=== PATIENT | female | born 1980 | race Caucasian/White ===

== ENCOUNTER 2016-07-23 20:28 | Emergency (ER) | payer OTHER ==
--- NOTE | 2016-07-23 22:53 | ED ORDER SUMMARY ---
..... Patient: JAS BARKER OrderSheet [facility] VisitID: [id number] [address] [place] [address] 35y, F Registration Date/Time: 07/23/2016 ORDER SHEET Weight: 95.2 kg (stated) Allergies: No Known Drug Allergy GENERAL ORDERS: Chest 2V Urgent (21:55 07/23/2016 [facility]) (Ack 21:58 LMuller) (22:34 LMuller) EKG - ER Stat (22:14 07/23/2016 [facility]) (Ack 22:15 LTapper) (22:25 Fausto R.NSadaf) MEDICATION ORDERS: DuoNeb Neb Tx 1 unit dose (NOW) (21:55 07/23/2016 [facility]) (22:03 Radha) IV FLUIDS: ORDER SHEET NOTES: [Electronically signed by Ramya Atwood R.N. (23:07/23/2016)] [Electronically signed by Preston Parmar DO (03:13 07/24/2016)] [Electronically locked/signed by Ramya Atwood R.N. (23:07/23/2016)]
--- NOTE | 2016-07-23 22:53 | ED CLINICAL REPORT ---
Clinical Report - Physicians/Mid Levels [facility] [address] [place] [address] 07/23/2016 20:28 Patient: JAS BARKER Time Seen: 21:52. Arrived- By private vehicle. Historian- patient. HISTORY OF PRESENT ILLNESS Chief Complaint: DYSPNEA. This started about 1 1/2 week ago and is still present. It was gradual in onset and has been waxing/waning. The dyspnea is described as moderate and is worsened by exertion and is improved by rest. The patient has had a cough, dyspnea on exertion and anxiety. No fever, calf pain or foot swelling. Similar symptoms previously: Recent medical care: The patient was seen recently at this facility in the emergency department. Evaluation/treatment: antibiotic prescribed. Diagnosis: bronchitis. REVIEW OF SYSTEMS The patient has had moderate muscle aches involving the back. No eye irritation, sore throat, nausea, vomiting or abdominal pain. No diarrhea, black stools, bloody stools, headache or fainting episodes. No difficulty with urination, excessive urination, skin rash, enlarged lymph nodes or joint pain. The patient has had a nasal discharge and sinus drainage. All systems otherwise negative, except as recorded above. PAST HISTORY PCP: [place] Stuart ROBLEMS: Bronchitis. Anxiety. Dysfunctional Uterine Bleeding. Vaginitis. Vaginal Discharge. Skin Rash. SURGERIES: Adenoidectomy. Tonsillectomy. Tubal Ligation. Medications: None. Allergies: No Known Drug Allergy. SOCIAL HISTORY Smoker- current status unknown. Occasional alcohol use. No drug use. Is a local resident. ADDITIONAL NOTES The nursing notes have been reviewed. PHYSICAL EXAM Vital Signs: 07/23/2016 21:30 BP: 137/93. HR: 65. RR: 20. O2 saturation: 97%. Temp: 97.8 F. Appearance: Alert. No acute distress. Eyes: Eyes normal inspection. No pale conjunctivae or scleral icterus. ENT: Pharynx normal. Uvula midline. No pharyngeal erythema. The mucous membranes are not dry. Neck: Normal inspection. No jugular venous distention. Neck supple. No meningeal signs or JVD. CVS: Normal heart rate and rhythm. Heart sounds normal. Pulses normal. Respiratory: No respiratory distress. Breath sounds normal. No retractions, decreased air movement, prolonged expiration, splinting or wheezes. No stridor, rales or rhonchi. Abdomen: Soft and nontender. Back: Normal inspection. Skin: Skin warm and dry. Normal skin color. Normal skin turgor. Extremities: Extremities exhibit normal ROM. No lower extremity edema. Neuro: Oriented X 3. No motor deficit. LABS, X-RAYS, AND EKG EKG: EKG time: (22:49). Normal sinus rhythm. Rate: 70. Normal P waves. Normal DMITRI. Normal QRS complex. Normal axis. Normal ST and T waves. The study has been interpreted contemporaneously by me. The EKG appears to be a good tracing. Chest X-ray: No acute disease. Normal lung markings present. Normal heart size. Mediastinum normal. Great vessels normal. No infiltrate. Views: PA and lateral. Technique: good. The X-rays were interpreted contemporaneously by me. Pulse Oximetry: 07/23/2016 21:30 O2 saturation: 97%. (FIO2 - room air). Interpretation: normal. PROGRESS AND PROCEDURES Course of Care: DuoNeb nebulizer treatment (1 unit dose) given. 03:12 07/24/16. Patient is stable. Physical exam findings are improved. Symptoms much better. Most c/w viral URI / bronchitis - could be influenza - Tamiflu not indicated (and testing will not loom changeover operator in this flu epidemic). Patient/family counseled. Old ED records reviewed. Disposition: Discharged. Condition: stable and improved. CLINICAL IMPRESSION Acute viral bronchitis. Possible influenza with upper respiratory infection and bronchitis. INSTRUCTIONS Do not work for two days. Drink plenty of fluids. Do not smoke. Seek medical help to quit smoking. Warnings: Further evaluation is necessary in order to obtain test results and conduct further tests. It is very important to follow up with a physician. GENERAL WARNINGS: Return or contact your physician immediately if your condition worsens or changes unexpectedly, if not improving as expected, or if other problems arise. Prescription Medications: Albuterol HFA oral inhaler: inhale 1 to 2 puffs every four to six hours as needed for difficulty breathing. Dispense one (1) unit. No refills. (with spacer) OTC Medications: Acetaminophen (available over the counter): take according to label instructions. Motrin (available over the counter): take according to label instructions. Follow-up: Follow up with your doctor [facility] in two days. (Electronically signed by Preston Parmar DO 07/24/2016 3:13)
--- NOTE | 2016-07-23 22:53 | ED ORDER SUMMARY ---
..... Patient: JAS BARKER OrderSheet [facility] VisitID: [id number] [address] [place] [address] 35y, F Registration Date/Time: 07/23/2016 ORDER SHEET Weight: 95.2 kg (stated) Allergies: No Known Drug Allergy GENERAL ORDERS: Chest 2V Urgent (21:55 07/23/2016 [facility]) (Ack 21:58 LMuller) (22:34 LMuller) EKG - ER Stat (22:14 07/23/2016 [facility]) (Ack 22:15 LTapper) (22:25 Fausto R.NSadaf) MEDICATION ORDERS: DuoNeb Neb Tx 1 unit dose (NOW) (21:55 07/23/2016 [facility]) (22:03 Radha) IV FLUIDS: ORDER SHEET NOTES: [Electronically signed by Ramya Atwood R.N. (23:07/23/2016)] [Electronically signed by Preston Parmar DO (03:13 07/24/2016)] [Electronically locked/signed by Ramya Atwood R.N. (23:07/23/2016)]
--- NOTE | 2016-07-23 22:53 | ED CLINICAL REPORT ---
Clinical Report - Physicians/Mid Levels [facility] [address] [place] [address] 07/23/2016 20:28 Patient: JAS BARKER Time Seen: 21:52. Arrived- By private vehicle. Historian- patient. HISTORY OF PRESENT ILLNESS Chief Complaint: DYSPNEA. This started about 1 1/2 week ago and is still present. It was gradual in onset and has been waxing/waning. The dyspnea is described as moderate and is worsened by exertion and is improved by rest. The patient has had a cough, dyspnea on exertion and anxiety. No fever, calf pain or foot swelling. Similar symptoms previously: Recent medical care: The patient was seen recently at this facility in the emergency department. Evaluation/treatment: antibiotic prescribed. Diagnosis: bronchitis. REVIEW OF SYSTEMS The patient has had moderate muscle aches involving the back. No eye irritation, sore throat, nausea, vomiting or abdominal pain. No diarrhea, black stools, bloody stools, headache or fainting episodes. No difficulty with urination, excessive urination, skin rash, enlarged lymph nodes or joint pain. The patient has had a nasal discharge and sinus drainage. All systems otherwise negative, except as recorded above. PAST HISTORY PCP: Montana Stuart ROBLEMS: Bronchitis. Anxiety. Dysfunctional Uterine Bleeding. Vaginitis. Vaginal Discharge. Skin Rash. SURGERIES: Adenoidectomy. Tonsillectomy. Tubal Ligation. Medications: None. Allergies: No Known Drug Allergy. SOCIAL HISTORY Smoker- current status unknown. Occasional alcohol use. No drug use. Is a local resident. ADDITIONAL NOTES The nursing notes have been reviewed. PHYSICAL EXAM Vital Signs: 07/23/2016 21:30 BP: 137/93. HR: 65. RR: 20. O2 saturation: 97%. Temp: 97.8 F. Appearance: Alert. No acute distress. Eyes: Eyes normal inspection. No pale conjunctivae or scleral icterus. ENT: Pharynx normal. Uvula midline. No pharyngeal erythema. The mucous membranes are not dry. Neck: Normal inspection. No jugular venous distention. Neck supple. No meningeal signs or JVD. CVS: Normal heart rate and rhythm. Heart sounds normal. Pulses normal. Respiratory: No respiratory distress. Breath sounds normal. No retractions, decreased air movement, prolonged expiration, splinting or wheezes. No stridor, rales or rhonchi. Abdomen: Soft and nontender. Back: Normal inspection. Skin: Skin warm and dry. Normal skin color. Normal skin turgor. Extremities: Extremities exhibit normal ROM. No lower extremity edema. Neuro: Oriented X 3. No motor deficit. LABS, X-RAYS, AND EKG EKG: EKG time: (22:49). Normal sinus rhythm. Rate: 70. Normal P waves. Normal DMITRI. Normal QRS complex. Normal axis. Normal ST and T waves. The study has been interpreted contemporaneously by me. The EKG appears to be a good tracing. Chest X-ray: No acute disease. Normal lung markings present. Normal heart size. Mediastinum normal. Great vessels normal. No infiltrate. Views: PA and lateral. Technique: good. The X-rays were interpreted contemporaneously by me. Pulse Oximetry: 07/23/2016 21:30 O2 saturation: 97%. (FIO2 - room air). Interpretation: normal. PROGRESS AND PROCEDURES Course of Care: DuoNeb nebulizer treatment (1 unit dose) given. 03:12 07/24/16. Patient is stable. Physical exam findings are improved. Symptoms much better. Most c/w viral URI / bronchitis - could be influenza - Tamiflu not indicated (and testing will not change manager in this flu epidemic). Patient/family counseled. Old ED records reviewed. Disposition: Discharged. Condition: stable and improved. CLINICAL IMPRESSION Acute viral bronchitis. Possible influenza with upper respiratory infection and bronchitis. INSTRUCTIONS Do not work for two days. Drink plenty of fluids. Do not smoke. Seek medical help to quit smoking. Warnings: Further evaluation is necessary in order to obtain test results and conduct further tests. It is very important to follow up with a physician. GENERAL WARNINGS: Return or contact your physician immediately if your condition worsens or changes unexpectedly, if not improving as expected, or if other problems arise. Prescription Medications: Albuterol HFA oral inhaler: inhale 1 to 2 puffs every four to six hours as needed for difficulty breathing. Dispense one (1) unit. No refills. (with spacer) OTC Medications: Acetaminophen (available over the counter): take according to label instructions. Motrin (available over the counter): take according to label instructions. Follow-up: Follow up with your doctor [facility] in two days. (Electronically signed by Preston Parmar DO 07/24/2016 3:13)
--- NOTE | 2016-07-23 22:53 | ED NURSING NOTES ---
Clinical Report - Nurses [facility] [address] [place] [address] 07/23/2016 20:28 Patient: JAS BARKER TRIAGE Triage time 21:30 Jul 23 2016. Acuity: LEVEL 4. Chief Complaint: RECHECK OF ILLNESS STATUS. Alert. No acute distress. ROHAN COMA SCORE: Guffey Coma Scale: 15- eyes open spontaneously (4); best verbal response- oriented x 4 (5); best motor response- obeys commands (6). --21:33 Yudi Akhtar R.N. 21:30 07/23/16. BP: 137/93. HR: 65. RR: 20. O2 saturation: 97%. Temp: 97.8 F. Pain level now 6/10. --21:33 Yudi Akhtar R.N. Weight: 95.2 kg stated. Height/Length: 66 inches Per Patient. BMI: 33.9. --21:29 Yudi Akhtar R.N. Medications None. --21:32 Yudi Akhtar R.N. Medication/allergy information source: the patient. --21:33 Yudi Akhtar R.N. Allergies No Known Drug Allergy. --21:32 Yudi Akhtar R.N. History Arrived by private vehicle. Historian: patient. Primary physician ([facility]). ( Dx with Bronchitis here at [facility]. Finished the ABX. States no better. States increased upper neck tenderness. Cheat pains, tightness.). Previous treatment: Previously seen in this ED. PO antibiotic given in ED. Prescription given. SOCIAL HX: Smoker- current status unknown (cigarette). Occasional alcohol use. No drug use. NUTRITIONAL RISK ASSESSMENT: The nutritional risk assessment revealed no deficiencies. FUNCTIONAL ASSESSMENT: Functional assessment: no impairments noted. LEARNING NEEDS ASSESSMENT: The learning needs assessment revealed no barriers. SKIN INTEGRITY ASSESSMENT: Skin integrity risk assessment completed. No skin integrity risk identified. --21:33 Yudi Akhtar R.N. PROBLEMS: Bronchitis. Anxiety. Dysfunctional Uterine Bleeding. Vaginitis. Vaginal Discharge. Skin Rash. LNMP - Last Normal Menstrual Period. --21:32 Yudi Akhtar R.N. ADDITIONAL SURGERIES: Adenoidectomy. Tonsillectomy. Tubal Ligation. --:32 Yudi Akhtar R.N. Interventions ID band on patient. To room. --21:33 Yudi Akhtar R.N. NURSING PROGRESS NOTES 22:03 07/23/2016 Duoneb (Ipratropium-Albuterol) Neb TX Nebulizer 1 unit dose given. Given by the respiratory therapist. Allergies verified and confirmed 5 rights. --22:03 Elsa Coker transferred and report received. --22:25 Ramya Atwood R.N. Two patient identifiers checked. Call light placed in reach. Side rails up x 1. Bed placed in lowest position. Brakes of bed on. --22:25 Ramya Atwood R.N. Patient transported to radiology by stretcher with tech. --22:32 Ramya Atwood R.N. EKG time: (2248). EKG was performed by a tech and shown to the ED physician. --22:49 Ivonne Choi. DISPOSITION / DISCHARGE Condition at departure: stable. No learning barriers present. Discharge instructions provided and reviewed with the patient. Reviewed medication(s) side effects, precautions, dosing and course information. Prescription(s) given to the patient. Patient verbalized understanding. Written instructions provided in Moz[place]ican. The patient was discharged home. She left the Emergency Department ambulatory and via private vehicle. --23:01 Ramya Atwood R.N. 23:00 07/23/16. BP: 120/78. HR: 63. RR: 16. O2 saturation: 96% on room air. Temp: deferred. Kennedy-Kc pain scale: 410. --23:01 Ramya Atwood R.N. Locked/Released at 07/23/2016 23:01 by Ramya Atwood R.N.
--- NOTE | 2016-07-23 22:53 | ED NURSING NOTES ---
Clinical Report - Nurses [facility] [address] [place] [address] 07/23/2016 20:28 Patient: JAS BARKER TRIAGE Triage time 21:30 Jul 23 2016. Acuity: LEVEL 4. Chief Complaint: RECHECK OF ILLNESS STATUS. Alert. No acute distress. ROHAN COMA SCORE: Harvey Coma Scale: 15- eyes open spontaneously (4); best verbal response- oriented x 4 (5); best motor response- obeys commands (6). --21:33 Yudi Akhtar R.N. 21:30 07/23/16. BP: 137/93. HR: 65. RR: 20. O2 saturation: 97%. Temp: 97.8 F. Pain level now 6/10. --21:33 Yudi Akhtar R.N. Weight: 95.2 kg stated. Height/Length: 66 inches Per Patient. BMI: 33.9. --21:29 Yudi Akhtar R.N. Medications None. --21:32 Yudi Akhtar R.N. Medication/allergy information source: the patient. --21:33 Yudi Akhtar R.N. Allergies No Known Drug Allergy. --21:32 Yudi Akhtar R.N. History Arrived by private vehicle. Historian: patient. Primary physician ([facility]). ( Dx with Bronchitis here at [facility]. Finished the ABX. States no better. States increased upper neck tenderness. Cheat pains, tightness.). Previous treatment: Previously seen in this ED. PO antibiotic given in ED. Prescription given. SOCIAL HX: Smoker- current status unknown (cigarette). Occasional alcohol use. No drug use. NUTRITIONAL RISK ASSESSMENT: The nutritional risk assessment revealed no deficiencies. FUNCTIONAL ASSESSMENT: Functional assessment: no impairments noted. LEARNING NEEDS ASSESSMENT: The learning needs assessment revealed no barriers. SKIN INTEGRITY ASSESSMENT: Skin integrity risk assessment completed. No skin integrity risk identified. --21:33 Yudi Akhtar R.N. PROBLEMS: Bronchitis. Anxiety. Dysfunctional Uterine Bleeding. Vaginitis. Vaginal Discharge. Skin Rash. LNMP - Last Normal Menstrual Period. --21:32 Yudi Akhtar R.N. ADDITIONAL SURGERIES: Adenoidectomy. Tonsillectomy. Tubal Ligation. --:32 Yudi Akhtar R.N. Interventions ID band on patient. To room. --21:33 Yudi Akhtar R.N. NURSING PROGRESS NOTES 22:03 07/23/2016 Duoneb (Ipratropium-Albuterol) Neb TX Nebulizer 1 unit dose given. Given by the respiratory therapist. Allergies verified and confirmed 5 rights. --22:03 Elsa Coker transferred and report received. --22:25 Ramya Atwood R.N. Two patient identifiers checked. Call light placed in reach. Side rails up x 1. Bed placed in lowest position. Brakes of bed on. --22:25 Ramya Atwood R.N. Patient transported to radiology by stretcher with tech. --22:32 Ramya Atwood R.N. EKG time: (2248). EKG was performed by a tech and shown to the ED physician. --22:49 Ivonne Choi. DISPOSITION / DISCHARGE Condition at departure: stable. No learning barriers present. Discharge instructions provided and reviewed with the patient. Reviewed medication(s) side effects, precautions, dosing and course information. Prescription(s) given to the patient. Patient verbalized understanding. Written instructions provided in Bruneian. The patient was discharged home. She left the Emergency Department ambulatory and via private vehicle. --23:01 Ramya Atwood R.N. 23:00 07/23/16. BP: 120/78. HR: 63. RR: 16. O2 saturation: 96% on room air. Temp: deferred. Kennedy-Kc pain scale: 410. --23:01 Ramya Atwood R.N. Locked/Released at 07/23/2016 23:01 by Ramya Atwood R.N.
--- NOTE | 2016-07-24 01:00 | DIAGNOSTIC IMAGING REPORT ---
PROCEDURE: XR CHEST 2 VIEW INDICATION: COUGH TECHNIQUE: PA and lateral views. COMPARISON: None. FINDINGS: Lungs are clear. Heart and mediastinum are normal. There is mild with prominent fat pad at the right cardiophrenic angle. Thorax is normal. IMPRESSION: 1. Negative chest.
--- NOTE | 2016-07-24 03:13 | ED DISCHARGE INSTRUCTIONS ---
Patient: JAS BARKER General Instructions [facility] VisitID: [id number] [place] [address] 35y, F Registration Date/Time: 07/23/2016 Acute viral bronchitis. INSTRUCTIONS Do not work for two days. Drink plenty of fluids. Do not smoke. Seek medical help to quit smoking. Warnings: Further evaluation is necessary in order to obtain test results and conduct further tests. It is very important to follow up with a physician. GENERAL WARNINGS: Return or contact your physician immediately if your condition worsens or changes unexpectedly, if not improving as expected, or if other problems arise. Prescription Medications: Albuterol HFA oral inhaler: inhale 1 to 2 puffs every four to six hours as needed for difficulty breathing. Dispense one (1) unit. No refills. (with spacer) OTC Medications: Acetaminophen (available over the counter): take according to label instructions. Motrin (available over the counter): take according to label instructions. Follow-up: Follow up with your doctor [facility] in two days. ADDITIONAL INFORMATION Bronchitis (Adult: Abx Tx) BRONCHITIS is an infection of the air passages (bronchial tubes). It often occurs during the common cold. Symptoms include cough with mucus (phlegm) and low-grade fever. Bronchitis usually lasts 7-14 days. Mild cases can be treated with simple home remedies. More severe infection is treated with an antibiotic. Home Care: If symptoms are severe, rest at home for the first 2-3 days. When you resume activity, don't let yourself get too tired. Do not smoke. Avoid being exposed to the smoke of others. You may use acetaminophen (Tylenol) or ibuprofen (Motrin, Advil) to control fever or pain, unless another medicine was prescribed for this. [NOTE: If you have chronic liver or kidney disease or ever had a stomach ulcer or GI bleeding, talk with your doctor before using these medicines.] Your appetite may be poor, so a light diet is fine. Avoid dehydration by drinking 6-8 glasses of fluids per day (water, soft, drinks, juices, tea, soup, etc.). Extra fluids will help loosen secretions in the lungs. Duxf-jhb-unysrjr cough medicines that containdextromethorphan(such as Robitussin DM) and decongestants (Actifed or Sudafed) may help relieve cough and congestion. [NOTE: Do not use decongestants if you have high blood pressure.] Finish all antibiotic medicine, even if you are feeling better after only a few days. Follow Up with your doctor or as directed if you dont start to feel better after three days. [NOTE: If you are age 65 or older, or if you have chronic asthma or COPD, we recommend a PNEUMOCOCCAL VACCINATION every five years and a yearly INFLUENZAVACCINATION (FLU-SHOT) every . Ask your doctor about this. If you had an X-ray, a radiologist will review it. You will be notified of any new findings that may affect your care.] Get Prompt Medical Attention if any of the following occur: Fever over 100.4F (38.0C) for more than three days Trouble breathing, wheezing or pain with breathing Coughing up blood or increased amounts of colored sputum Weakness, drowsiness, headache, facial pain, ear pain or a stiff neck Influenza (Adult) Influenza, also called the flu, is a viral illness that affects the air passages of the lungs. It differs from the common cold. It is highly contagious. It may be spread through the air by coughing and sneezing or by direct contact (touching the sick person and then touching your own eyes, nose or mouth). Illness starts 1-3 days after exposure and lasts for 1-2 weeks. Antibiotics are usually not needed unless a complication appears (ear or sinus infection or pneumonia). Symptoms may be mild or severe and can include extreme tiredness (wanting to stay in bed all day), chills, fevers, muscle aching, soreness with eye movement, headache, and a dry, hacking cough. Home Care: Avoid exposure to cigarette smoke (yours or others). Tylenol or ibuprofen (Advil) will help fever, muscle aching, and headache. To avoid risk of liver injury, aspirin should not be used in children and teenagers under 18 with this illness. Nausea and loss of appetite are common. A light diet is recommended. Avoid dehydration by drinking 6-8 glasses of fluids per day (water, sport drinks like Gatorade, soft drinks without caffeine, juices, tea, soup, etc.). Extra fluids will also help loosen secretions in the nose and lungs. Pxpf-jrp-rbzffpm cold medicines will not shorten the duration of the illness but may be helpful for the following symptoms: cough (Robitussin DM); sore throat (Chloraseptic lozenges or spray); nasal and sinus congestion (Actifed or Sudafed). [NOTE: Do not use decongestants if you have high blood pressure.] Stay home until your fever has been gone for at least 24 hours (without the use of fever-reducing medications such as ibuprofen). Follow Up with your doctor or as directed by our staff if you are not improving over the next week. Note: If you are age 65 or older, or if you have chronic asthma or COPD, we recommend a pneumococcal vaccinationevery five years. All adults shouldreceive a yearly influenza vaccination every . Ask your doctor about this. Get Prompt Medical Attention if any of the following occur: Cough with lots of colored sputum (mucus) or blood in your sputum Chest pain, shortness of breath, wheezing, or difficulty breathing Severe headache, face, neck or ear pain New rash Fever of 100.4F (38C) oral or higher, not better with fever medication Confusion, behavior change or seizure Severe weakness or dizziness How To Quit Smoking Smoking is one of the hardest habits to break. About half of all those who have ever smoked have been able to quit, and most of those (about 70%) who still smoke want to quit. Here are some of the best ways to stop smoking. Keep Trying: It takes most smokers about 8 tries before they are finally able to fully quit. So, the more often you try and fail, the better your chance of quitting the next time! So, don't give up! Go Cold [place]: Most ex-smokers quit cold turkey. Trying to cut back gradually doesn't seem to work as well, perhaps because it continues the smoking habit. Also, it is possible to fool yourself by inhaling more while smoking fewer cigarettes. This results in the same amount of nicotine in your body! Get Support: Support programs can make an important difference, especially for the heavy smoker. These groups offer lectures, methods to change your behavior and peer support. Call the free national Quitline for more information. 448-TEDG-TGD (499-679-6935). Low-cost or free programs are offered by many hospitals, local chapters of the [place] [employer] (090-318-8567) and the [place] [employer] (912-986-8091). Support at home is important too. Non-smokers can help by offering praise and encouragement. If the smoker fails to quit, encourage them to try again! Aruu-Iuy-Ievtvpv Medicines: For those who can't quit on their own, Nicotine Replacement Therapy (NRT) may make quitting much easier. Certain aids such as the nicotine patch, gum and lozenge are available without a prescription. However, it is best to use these under the guidance of your doctor. The skin patch provides a steady supply of nicotine to the body. Nicotine gum and lozenge gives temporary bursts of low levels of nicotine. Both methods take the edge off the craving for cigarettes. WARNING: If you feel symptoms of nicotine overdose, such as nausea, vomiting, dizziness, weakness, or fast heartbeat, stop using these and see your doctor. Prescription Medicines: After evaluating your smoking patterns and prior attempts at quitting, your doctor may offer a prescription medicine such as bupropion (Zyban, Wellbutrin), varenicline (Chantix, Champix), a niocotine inhaler or nasal spray. Each has its unique advantage and side effects which your doctor can review with you. Health Benefits Of Quitting: The benefits of quitting start right away and keep improving the longer you go without smokin minutes: blood pressure and pulse return to normal 8 hours: oxygen levels return to normal 2 days: ability to smell and taste begins to improve as damaged nerves start to regrow 2-3 weeks: circulation and lung function improves 1-9 months: decreased cough, congestion and shortness of breath; less tired 1 year: risk of heart attack decreases by half 5 years: risk of lung cancer decreases by half; risk of stroke becomes the same as a non-smoker For information about how to quit smoking, visit the following links: National [employer] [place] , Clearing the Air, Quit Smoking Today - an online booklet. http://www.smokefree.gov/pubs/clearing_the_air.pdf Smokefree.gov http://smokefree.gov/ QuitNet http://www.quitnet.com/ Albuterol Sulfate Pressurized inhalation, suspension What is this medicine? ALBUTEROL (al BYOO ter ole) is a bronchodilator. It helps open up the airways in your lungs to make it easier to breathe. This medicine is used to treat and to prevent bronchospasm. How should I use this medicine? This medicine is for inhalation through the mouth. Follow the directions on your prescription label. Take your medicine at regular intervals. Do not use more often than directed. Make sure that you are using your inhaler correctly. Ask you doctor or health care provider if you have any questions. Talk to your saddle mechanic regarding the use of this medicine in children. Special care may be needed. What side effects may I notice from receiving this medicine? Side effects that you should report to your doctor or health complex care nurse practitioner as soon as possible: allergic reactions like skin rash, itching or hives, swelling of the face, lips, or tongue breathing problems chest pain feeling faint or lightheaded, falls high blood pressure irregular heartbeat fever muscle cramps or weakness pain, tingling, numbness in the hands or feet vomiting Side effects that usually do not require medical attention (report to your doctor or health complex care nurse practitioner if they continue or are bothersome): cough difficulty sleeping headache nervousness or trembling stomach upset stuffy or runny nose throat irritation unusual taste What may interact with this medicine? anti-infectives like chloroquine and pentamidine caffeine cisapride diuretics medicines for colds medicines for depression or for emotional or psychotic conditions medicines for weight loss including some herbal products methadone some antibiotics like clarithromycin, erythromycin, levofloxacin, and linezolid some heart medicines steroid hormones like dexamethasone, cortisone, hydrocortisone theophylline thyroid hormones What if I miss a dose? If you miss a dose, use it as soon as you can. If it is almost time for your next dose, use only that dose. Do not use double or extra doses. Where should I keep my medicine? Keep out of the reach of children. Store at room temperature between 15 and 30 degrees C (59 and 86 degrees F). The contents are under pressure and may burst when exposed to heat or flame. Do not freeze. This medicine does not work as well if it is too cold. Throw away any unused medicine after the expiration date. Inhalers need to be thrown away after the labeled number of puffs have been used or by the expiration date; whichever comes first. Ventolin HFA should be thrown away 12 months after removing from foil pouch. Check the instructions that come with your medicine. What should I tell my health care provider before I take this medicine? They need to know if you have any of the following conditions: diabetes heart disease or irregular heartbeat high blood pressure pheochromocytoma seizures thyroid disease an unusual or allergic reaction to albuterol, levalbuterol, sulfites, other medicines, foods, dyes, or preservatives or trying to get breast-feeding What should I watch for while using this medicine? Tell your doctor or health complex care nurse practitioner if your symptoms do not improve. Do not use extra albuterol. If your asthma or bronchitis gets worse while you are using this medicine, call your doctor right away. If your mouth gets dry try chewing sugarless gum or sucking hard candy. Drink water as directed. Acetaminophen Oral tablet What is this medicine? ACETAMINOPHEN (a set a HOOD hemant fen) is a pain reliever. It is used to treat mild pain and fever. How should I use this medicine? Take this medicine by mouth with a glass of water. Follow the directions on the package or prescription label. Take your medicine at regular intervals. Do not take your medicine more often than directed. Talk to your saddle mechanic regarding the use of this medicine in children. While this drug may be prescribed for children as young as 6 years of age for selected conditions, precautions do apply. What side effects may I notice from receiving this medicine? Side effects that you should report to your doctor or health complex care nurse practitioner as soon as possible: allergic reactions like skin rash, itching or hives, swelling of the face, lips, or tongue breathing problems fever or sore throat redness, blistering, peeling or loosening of the skin, including inside the mouth trouble passing urine or change in the amount of urine unusual bleeding or bruising unusually weak or tired yellowing of the eyes or skin Side effects that usually do not require medical attention (report to your doctor or health complex care nurse practitioner if they continue or are bothersome): headache nausea, stomach upset What may interact with this medicine? alcohol imatinib isoniazid other medicines with acetaminophen What if I miss a dose? If you miss a dose, take it as soon as you can. If it is almost time for your next dose, take only that dose. Do not take double or extra doses. Where should I keep my medicine? Keep out of reach of children. Store at room temperature between 20 and 25 degrees C (68 and 77 degrees F). Protect from moisture and heat. Throw away any unused medicine after the expiration date. What should I tell my health care provider before I take this medicine? They need to know if you have any of these conditions: if you frequently drink alcohol containing drinks liver disease an unusual or allergic reaction to acetaminophen, other medicines, foods, dyes or preservatives or trying to get breast-feeding What should I watch for while using this medicine? Tell your doctor or health complex care nurse practitioner if the pain lasts more than 10 days (5 days for children), if it gets worse, or if there is a new or different kind of pain. Also, check with your doctor if a fever lasts for more than 3 days. Do not take other medicines that contain acetaminophen with this medicine. Always read labels carefully. If you have questions, ask your doctor or pharmacist. If you take too much acetaminophen get medical help right away. Too much acetaminophen can be very dangerous and cause liver damage. Even if you do not have symptoms, it is important to get help right away. Ibuprofen Oral tablet What is this medicine? IBUPROFEN (eye BYOO proe fen) is a non-steroidal anti-inflammatory drug (NSAID). It is used for dental pain, fever, headaches or migraines, osteoarthritis, rheumatoid arthritis, or painful monthly periods. It can also relieve minor aches and pains caused by a cold, flu, or sore throat. How should I use this medicine? Take this medicine by mouth with a glass of water. Follow the directions on the prescription label. Take this medicine with food if your stomach gets upset. Try to not lie down for at least 10 minutes after you take the medicine. Take your medicine at regular intervals. Do not take your medicine more often than directed. A special MedGuide will be given to you by the pharmacist with each prescription and refill. Be sure to read this information carefully each time. Talk to your saddle mechanic regarding the use of this medicine in children. Special care may be needed. What side effects may I notice from receiving this medicine? Side effects that you should report to your doctor or health complex care nurse practitioner as soon as possible: allergic reactions like skin rash, itching or hives, swelling of the face, lips, or tongue black or bloody stools, blood in the urine or in vomit breathing problems changes in vision chest pain general ill feeling or flu-like symptoms nausea or vomiting redness, blistering, peeling or loosening of the skin, including inside the mouth slurred speech or weakness on one side of the body stomach pain unexplained weight gain or swelling unusually weak or tired yellowing of eyes or skin Side effects that usually do not require medical attention (report to your doctor or health complex care nurse practitioner if they continue or are bothersome): constipation or diarrhea dizziness gas or heartburn stomach upset What may interact with this medicine? Do not take this medicine with any of the following medications: cidofovir ketorolac methotrexate pemetrexed This medicine may also interact with the following medications: alcohol aspirin diuretics lithium other drugs for inflammation like prednisone warfarin What if I miss a dose? If you miss a dose, take it as soon as you can. If it is almost time for your next dose, take only that dose. Do not take double or extra doses. Where should I keep my medicine? Keep out of the reach of children. Store at room temperature between 15 and 30 degrees C (59 and 86 degrees F). Keep container tightly closed. Throw away any unused medicine after the expiration date. What should I tell my health care provider before I take this medicine? They need to know if you have any of these conditions: asthma cigarette smoker drink more than 3 alcohol containing drinks a day heart disease or circulation problems such as heart failure or leg edema (fluid retention) high blood pressure kidney disease liver disease stomach bleeding or ulcers an unusual or allergic reaction to ibuprofen, aspirin, other NSAIDS, other medicines, foods, dyes, or preservatives or trying to get breast-feeding What should I watch for while using this medicine? Tell your doctor or healthcare professional if your symptoms do not start to get better or if they get worse. This medicine does not prevent heart attack or stroke. In fact, this medicine may increase the chance of a heart attack or stroke. The chance may increase with longer use of this medicine and in people who have heart disease. If you take aspirin to prevent heart attack or stroke, talk with your doctor or health complex care nurse practitioner. Do not take other medicines that contain aspirin, ibuprofen, or naproxen with this medicine. Side effects such as stomach upset, nausea, or ulcers may be more likely to occur. Many medicines available without a prescription should not be taken with this medicine. This medicine can cause ulcers and bleeding in the stomach and intestines at any time during treatment. Ulcers and bleeding can happen without warning symptoms and can cause . To reduce your risk, do not smoke cigarettes or drink alcohol while you are taking this medicine. You may get drowsy or dizzy. Do not drive, use machinery, or do anything that needs mental alertness until you know how this medicine affects you. Do not stand or sit up quickly, especially if you are an older patient. This reduces the risk of dizzy or fainting spells. This medicine can cause you to bleed more easily. Try to avoid damage to your teeth and gums when you brush or floss your teeth. You have been given the following additional information: Bronchitis, Antiobiotic Treatment (Adult) Influenza (Adult) Smoking Cessation Albuterol Sulfate Pressurized inhalation, suspension Acetaminophen Oral tablet Ibuprofen Oral tablet Do not work for two days. (Electronically signed by Preston Parmar DO 07/24/2016 3:13)
--- NOTE | 2016-07-24 03:14 | ED MAR SUMMARY ---
..... Medication Administration Record [facility] [address] [place] [address] Patient: JAS BARKER Visit ID: [id number] 35y, F Weight: 95.2 kg Height/Length: 66 in BMI: 33.9 ALLERGIES: No Known Drug Allergy Given 22:03 07/23/2016 Elsa Coker, Medication Administered: DUONEB [NEB TX] (IPRATROPIUM-ALBUTEROL), Dose: 1 unit dose Nebulizer Neb TX. Medication Ordered: DuoNeb Neb Tx 1 unit dose (NOW).
--- NOTE | 2016-07-24 03:14 | ED MAR SUMMARY ---
..... Medication Administration Record [facility] [address] [place] [address] Patient: JAS BARKER Visit ID: [id number] 35y, F Weight: 95.2 kg Height/Length: 66 in BMI: 33.9 ALLERGIES: No Known Drug Allergy Given 22:03 07/23/2016 Elsa Coker, Medication Administered: DUONEB [NEB TX] (IPRATROPIUM-ALBUTEROL), Dose: 1 unit dose Nebulizer Neb TX. Medication Ordered: DuoNeb Neb Tx 1 unit dose (NOW).
--- NOTE | 2016-07-24 03:14 | ED MED RECONCILIATION SUMMARY ---
Patient: JAS BARKER Medication Reconciliation Report [facility] VisitID: [id number] [place] [address] 35y, F Registration Date/Time: 07/23/2016 Weight: 95.2 kg Height/Length: 66 in. BMI: 33.9 ALLERGIES: No Known Drug Allergy The patient's Home Medications are listed below: NONE. The source(s) of the original Home Medication information: patient The following Medications were given to the patient in the Emergency Department: Duoneb [Neb Tx] Neb TX 1 unit dose, administered: 07/23/2016 10:03:00 PM The following Medications were prescribed to the patient: Acetaminophen (available over the counter): take according to label instructions. -- Preston Parmar DO Motrin (available over the counter): take according to label instructions. -- Preston Parmar DO Albuterol HFA oral inhaler: inhale 1 to 2 puffs every four to six hours as needed for difficulty breathing. Dispense one (1) unit. No refills.(with spacer) -- Preston Parmar DO
--- NOTE | 2016-07-24 03:14 | ED MED RECONCILIATION SUMMARY ---
Patient: JAS BARKER Medication Reconciliation Report [facility] VisitID: [id number] [place] [address] 35y, F Registration Date/Time: 07/23/2016 Weight: 95.2 kg Height/Length: 66 in. BMI: 33.9 ALLERGIES: No Known Drug Allergy The patient's Home Medications are listed below: NONE. The source(s) of the original Home Medication information: patient The following Medications were given to the patient in the Emergency Department: Duoneb [Neb Tx] Neb TX 1 unit dose, administered: 07/23/2016 10:03:00 PM The following Medications were prescribed to the patient: Acetaminophen (available over the counter): take according to label instructions. -- Preston Parmar DO Motrin (available over the counter): take according to label instructions. -- Preston Parmar DO Albuterol HFA oral inhaler: inhale 1 to 2 puffs every four to six hours as needed for difficulty breathing. Dispense one (1) unit. No refills.(with spacer) -- Preston Parmar DO
== END 2016-07-23 23:00 | disposition home or self-care (01) ==
LOC: ED SRH 20:28
DX: J02.8 Acute pharyngitis due to other specified organisms (principal); B97.89 Other viral agents as the cause of diseases classified elsewhere